=== PATIENT | female | born 1945 | race African-American/Black ===

== ENCOUNTER 2017-11-12 00:53 | Observation (INO) | payer MEDICARE ==
[2017-11-12 01:48] LABS: Mean Corpuscular HGB CONC 32.7 g/dL (32.0-36.0); Mean Corpuscular Hemoglobin 25.7 pg (27.0-31.0); Mean Corpuscular Volume 78.6 fL (78.0-98.0); Mean Platelet Volume 7.7 fL (7.4-10.4); Platelet Count 242 thou/uL (130-400); RBC Distribution Width 16.2 % (11.5-14.5); Red Blood Cell (RBC) Count 3.88 mill/uL (4.20-5.40); White Blood Cell (WBC) Count 4.6 thou/uL (4.8-10.8)
[2017-11-12 02:07] LABS: ALT (SGPT) 28 U/L (8-55); AST (SGOT) 29 U/L (5-34); Albumin 3.6 g/dL (3.4-4.8); Alkaline Phosphatase 125 U/L (40-150); Anion Gap 14 mmol/L (10-20); BUN (Urea Nitrogen) 17 mg/dL (9.8-20.1); Bilirubin, Total 0.3 mg/dL (0.2-1.2); CK (CPK) 47 U/L (29-168); Calc. Creatinine Clearance 0 mL/min (70-130); Carbon Dioxide 23 mmol/L (23-31); Chloride 102 mmol/L (98-107); Estimated GFR-MDRD 50; Globulin 3.2 g/dL (2.4-3.5); Glucose 351 mg/dL (80-115); Potassium 3.2 mmol/L (3.5-5.1); Protein, Total 6.8 g/dL (6.0-8.3); Sodium 136 mmol/L (136-145)
[2017-11-12 02:09] LABS: CKMB 1.4 ng/mL (0-6.6); Troponin I Less than 0.010 ng/mL (< 0.028)
[2017-11-12 02:15] LABS: Band 2 % (5-11); Eosinophils 2 % (0-10); Lymphocytes 31 % (21-51); MDiff Complete? YES; Monocytes 11 % (0-10); Neutrophil 54 % (42-75); PLT Morphology Comment Appears Adequate; RBC Morphology Normal
[2017-11-12] MEDS ORDERED: Potassium Chloride 20 MEQ TAB ONE (02:26)
[2017-11-12] MEDS ORDERED: Furosemide 40 MG TAB ONE (03:12)
[2017-11-12 06:08] VITALS: BMI 32.2
[2017-11-12] MEDS ORDERED: Dextrose 5% in Water 1,000 ML IV PRN (06:25)
[2017-11-12] MEDS ORDERED: HYDROcodone/Acetaminophen 5/325 mg Tablet PO PRN (06:25)
[2017-11-12] MEDS ORDERED: HYDROcodone/Acetaminophen 7.5/325 mg Tablet PO PRN (06:25)
[2017-11-12] MEDS ORDERED: Dextrose 50% Abboject 50 ML SYRINGE SLOW IVP PRN (06:25)
[2017-11-12] MEDS ORDERED: Ondansetron HCl/PF 4 MG/2 ML Vial IVP PRN (06:25)
[2017-11-12] MEDS ORDERED: Albuterol Sulfate 2.5 mg/3 ml Neb NEB PRN (06:47)
[2017-11-12] MEDS: HumaLOG 300 UNITS/3 ML VIAL SC PRN ×3 (07:13→21:18)
--- NOTE | 2017-11-12 07:13 | HP ---
DATE OF ADMISSION: 11/12/2017 CHIEF COMPLAINT: Shortness of breath and increased cough. HISTORY OF PRESENT ILLNESS: This is a 72-year-old female with known history of adolfo estive heart failure, hypertension, type 2 diabetes mellitus, has a history of COPD. The patient is noted to have a worsening cough and congestion with increased sputum production for the past few days , so she decided to come to the ER for further evaluation. When she presented to the ER, she had a m ildly elevated BNP and she was very hypoxic, but improving on the breathing treatments. The patient was about to go home, but she was noted to have increased heart rate of 130s. The patient had normal oxygenation, but because of the worsening tachycardia which was suspicious for paroxysmal atrial fib rillation, the patient was admitted for further evaluation. The patient is seen on the floor. She w as alert and oriented. She does agree that she is smoking a lot and she has known history of COPD. She goes to a well surveying engineer in [place]. Denies having any chest pain at this time. No dizziness, no nausea, no vomiting. She denies having any fevers. PAST MEDICAL HISTORY: 1. COPD. 2. Congestive heart failure. 3. Type 2 diabetes mellitus. 4. Hypertension. 5. Hyperlipidemia. 6. History of coronary artery disease. PAST SURGICAL HISTORY: 1. Hysterectomy. 2. Cyst removal from the neck. 3. Cardiac catheterization. ALLERGIES: CODEINE. SOCIAL HISTORY: The patient is an active smoker. She denies alcohol or any recreational drugs. FAMILY HISTORY: Relevant for colon cancer, type 2 diabetes mellitus in one of the family members. REVIEW OF SYSTEMS: All 12 systems are reviewed with the patient thoroughly and found to be negative at this time. Constitutional: Weight loss or gain, ability to conduct usual activities. Skin: Rash, itching. Eyes: Double vision, pain. ENT/Mouth: Nose bleeding, neck stiffness, pain, tenderness. Cardiovascular: Palpitations, dyspnea on exertion, orthopnea. Respiratory: Shortness of breath, wheezing, cough, hemoptysis, fever or night sweats. Gastrointestinal: Poor appetite, abdominal pain, heartburn, nausea, vomiting, constipation, or diarrhea. Genitourinary: Urgency, frequency, dysuria, nocturia. Musculoskeletal: Pain, swelling. Neurologic/Psychiatric: Anxiety, depression. Allergy/Immunologic: Skin rash, bleeding tendency. HOME MEDICATIONS: 1. Lasix 40 mg p.o. daily. 2. Metformin 1000 mg p.o. b.i.d. 3. Aspirin 81 mg p.o. daily. 4. Atorvastatin 40 mg p.o. daily. 5. Biotin. 6. Ferrous sulfate. 7. Metoprolol 100 mg p.o. b.i.d. 8. Montelukast 10 mg p.o. daily. 9. Nifedipine 30 mg p.o. daily. 10. Protonix 40 mg p.o. daily. 11. Potassium chloride 20 mEq p.o. daily. 12. Sertraline 100 mg p.o. daily. 13. Tramadol. PHYSICAL EXAMINATION: VITAL SIGNS: Blood pressures are 145/68, heart rate is 91, respiration rate is 22, saturation 93%. GENERAL: The patient is moderately built and moderate nourished, does not appear dyspneic acute dist ress at this time. Alert and oriented x3. MUSCULOSKELETAL: No calf tenderness. No pedal edema. No joint redness, no joint swelling. LUNGS: Bilateral air entry was reduced with wheezing noted bilaterally. No use of any accessory mus cles of respiration. No evidence of crackles were noted. ABDOMEN: Soft, nontender, no guarding, no rebound tenderness. Bowel sounds normal. MUSCULOSKELETAL: No calf tenderness. No pedal edema. No joint tenderness, no joint swelling. SKIN: No cyanosis, no erythema, no rash, no pallor. NEUROLOGIC: Cranial nerves II through XII intact. No focal deficits were noted at this time. PSYCHIATRIC: No signs of suicidal ideation. No signs of jacey was noted. LABORATORY DATA: WBC 4.6, hemoglobin is 10.1, hematocrit 30.5, platelets 242. Sodium 136, potassium 3.2, chloride 102, bicarbonate 23, BUN 17, creatinine 1.27, blood sugar is 433. ASSESSMENT: 1. Acute chronic obstructive pulmonary disease exacerbation. 2. Acute congestive heart failure, diastolic dysfunction. 3. Hypertension. 4. Hyperglycemia with type 2 diabetes mellitus. 5. Hyperlipidemia. 6. Hypothyroidism. PLAN: 1. Plan is to closely monitor this patient. We will continue the DuoNebs q.4h. and albuterol nebs q .2h. Patient has clear signs of congestion with a prolonged expiratory phase suggestive of bronchocon striction. We will start the patient on Solu-Medrol 40 mg q.6h. 2. The patient has history of type 2 diabetes mellitus, has poorly controlled blood sugars at 400. We will start the patient on Lantus 30 units subcu daily and with sliding scale insulin. 3. Hypertension is well controlled. We will restart the patient's home medications. 4. Hyperlipidemia. We will continue the patient's atorvastatin at this time. 5. The patient has sinus tachycardia. I will continue the patient's metoprolol tartrate, likely thi s is from nebulizer treatment she received in the ER. 6. Deep venous thrombosis prophylaxis, Lovenox. I spent 75 minutes with this patient.
[2017-11-12] MEDS: Lisinopril 2.5 MG TAB PO SCH (08:56)
[2017-11-12] MEDS: Montelukast Sodium 10 mg Tablet PO SCH (08:57)
[2017-11-12] MEDS: Potassium Chloride 20 MEQ TAB PO SCH (08:57)
[2017-11-12] MEDS: Aspirin 81 mg Enteric Coated Tablet PO SCH (08:57)
[2017-11-12] MEDS: NIFEdipine XL 30 MG TAB PO SCH (08:58)
[2017-11-12] MEDS: Ferrous Sulfate 325 MG TAB PO SCH (08:58)
[2017-11-12] MEDS: Metoprolol Tartrate 100 MG TAB PO SCH ×2 (08:58→20:21)
[2017-11-12] MEDS: Spironolactone 25 MG TAB PO SCH (08:59)
[2017-11-12] MEDS ORDERED: Non-Formulary Item 1 EACH (Biotin [Biotin] 1,000 MCG) PO SCH (09:00)
[2017-11-12] MEDS ORDERED: Enoxaparin Sodium 40 MG/0.4 ML SYRINGE SC SCH (09:00)
[2017-11-12] MEDS: traMADol HCl 50 MG TAB PO SCH ×2 (09:04→20:22)
[2017-11-12] MEDS: Insulin Glargine 30 UNITS in Pre-Filled Syringe 1 EACH SC SCH (09:54)
--- NOTE | 2017-11-12 10:07 | RAD ---
2 VIEWS CHEST: Date: 11/12/17 COMPARISON: 05/20/14. HISTORY: Dyspnea and shortness of breath. FINDINGS: There is pulmonary vascular congestion. There is atherosclerotic calcification of the aortic arch. No pneumothorax or pleural fluid is seen. There is no focal consolidation or alveolar edema. There is m ild perihilar and bibasilar interstitial prominence. IMPRESSION: Findings suggesting mild interstitial pulmonary edema. Recommend follow-up imaging following claritzamen t. POS: [facility]
[2017-11-12] MEDS: Furosemide 40 MG/4 ML VIAL SLOW IVP SCH (13:52)
--- NOTE | 2017-11-12 14:16 | PDOC.EVN ---
Event Note - Event Note Event Note: Pt seen and examined. chart reviewed feels much better and is on RA without any SOB Monitor strips show rate controlled A-flutter. No h/o same .Follows with Dr. Ackerman(cardiology) in [place] .H/O Severe CAD on Cath in 2013. Will consult EP.follow ECHO results. may need further cardiologoical work up if EF <35%. No evidence of ACS. cont meds as ordered by admitting MD. cont IV Solumedrol,duonebs,Lasix IV etc am labs will follow
[2017-11-12] MEDS ORDERED: Atorvastatin Calcium 40 MG TAB PO SCH (21:00)
[2017-11-12] MEDS ORDERED: Rivaroxaban 10 MG TAB PO SCH (21:00)
--- NOTE | 2017-11-13 02:10 | CON ---
DATE OF CONSULTATION: 11/12/2017 ELECTROPHYSIOLOGY CONSULTATION REPORT REFERRING PHYSICIAN: Dr. Gilliland. I am seeing Ms. Quevedo at our [facility] telemetry floor as an electrophysiology net developer consultant. Her problems are: 1. Newly found atrial flutter with rapid ventricular rates. 2. Acute respiratory failure with underlying COPD exacerbation and possible congestive heart failure exacerbation. 3. Risk factors including type 2 diabetes, hypertension, and hyperlipidemia. 4. Prior history of coronary artery disease with remote history of stenting in 2001, still on aspiri n and Plavix. ALLERGIES: CODEINE. MEDICATIONS: At home include hydrocodone, albuterol, aspirin, Lipitor, dextrose, Lovenox, ferrous alvarenga lfate, furosemide, glucagon, insulin, lisinopril, metoprolol tartrate 100 mg twice a day. SUBJECTIVE: Ms. Quevedo is here with progressive dyspnea. She noted fevers, chills, worsening cough with sputum production for at least last couple of days. She did notice increasing fatigue, was not aware of her rapid heartbeats. Rest of 12-point systems otherwise unremarkable. PAST MEDICAL HISTORY: As above. She has been followed by internet marketing coordinator in [place] after her stent, b ut no recent need for cardiac intervention was noted. She denies prior history of arrhythmias. PAST SURGICAL HISTORY: Significant for hysterectomy, cyst removal and stent placement in the past. SOCIAL HISTORY: The patient is an active smoker. Denies ETOH or drug abuse. FAMILY HISTORY: Significant for colon cancer, type 2 diabetes in one of the family members. OBJECTIVE: VITAL SIGNS: Blood pressure is 144/62 in a supine position, 127/60 on a sitting position, 120/58 sta nding up; heart rate 85; respirations 20; temperature 98.2 degrees Fahrenheit. GENERAL: Alert and oriented woman, in no apparent distress. NECK: Supple. Jugular veins not distended. CHEST: Coarse without crackles. CARDIOVASCULAR: Heart sounds are irregularly irregular. S1 and S2 is variable. No murmur or gallop . ABDOMEN: Benign. Bowel sounds positive. EXTREMITIES: Lower extremities without edema, clubbing or cyanosis. Pulses are adequate. NEUROLOGIC: The patient is nonfocal. MUSCULOSKELETAL: No joint swelling or deformities. SKIN: Without rash. DATABASE: EKGs reviewed. Initial EKG reveals an atrial flutter, possibly typically morphology , although atypical features also noted. A 2D echo from 11/12/2017 shows LVEF of 55% to 60%, mild di lated left atrium, mitral regurgitation, mild tricuspid regurgitation. LABORATORY DATA: White count 4.6, hemoglobin 10, platelet count is 242. Sodium 136, potassium 3.2, BUN 17, creatinine 1.27 BNP is 402. Troponin I is less than 0.01. ASSESSMENT AND PLAN: Ms. Quevedo is a 72-year-old woman with history of coronary artery stenting in t he distant past, currently on aspirin and Plavix. She is admitted with upper respiratory tract infec tion symptoms without profound toxic signs. On the other hand, she was found to be in atrial flutter , which was not known to her before. The rates are somewhat rapid initially, but overall well contro lled, hence she is chronically taking metoprolol high dose. We discussed treatment options for the atrial flutter. At this point, I would recommend adding an an ticoagulant. She could benefit from a cardioversion, possibly ALEXANDRA guided before returning home, but also this could be performed as an outpatient as well after stabilization from her pulmonary conditio n. I also discussed ablation options, which could be considered in the future if recurrences are see n after resolution of her initial episode associated with acute respiratory failure. We will follow with you. Thank you for the consult.
[2017-11-13 04:36] VITALS: TEMP 98.2
[2017-11-13 06:26] LABS: #Lymphocytes 0.6 thou/uL (1.20-3.40); #Monocytes 0.3 thou/uL (0.11-0.59); %Basophils 0.4 % (0.0-1.0); %Lymphocytes 12.7 % (21.0-51.0); %Monocytes 5.4 % (0.0-10.0); %Neutrophils 81.4 % (42.0-75.0); Hemoglobin 9.7 g/dL (12.0-16.0); Mean Corpuscular HGB CONC 31.6 g/dL (32.0-36.0); Mean Corpuscular Volume 79.1 fL (78.0-98.0); Mean Platelet Volume 8.2 fL (7.4-10.4); Platelet Count 248 thou/uL (130-400); RBC Distribution Width 16.1 % (11.5-14.5); Red Blood Cell (RBC) Count 3.86 mill/uL (4.20-5.40)
[2017-11-13] MEDS: Furosemide 40 MG/4 ML VIAL SLOW IVP SCH ×2 (06:27→12:01)
[2017-11-13] MEDS: HumaLOG 300 UNITS/3 ML VIAL SC PRN ×2 (06:27→12:01)
[2017-11-13 06:45] LABS: Anion Gap 13 mmol/L (10-20); BUN (Urea Nitrogen) 20 mg/dL (9.8-20.1); Calc. Creatinine Clearance 82 mL/min (70-130); Calcium 9.3 mg/dL (7.8-10.44); Carbon Dioxide 27 mmol/L (23-31); Chloride 102 mmol/L (98-107); Estimated GFR-MDRD 71; Glucose 289 mg/dL (80-115); Potassium 3.8 mmol/L (3.5-5.1); Sodium 138 mmol/L (136-145)
[2017-11-13] MEDS: Ferrous Sulfate 325 MG TAB PO SCH (10:03)
[2017-11-13] MEDS: Insulin Glargine 30 UNITS in Pre-Filled Syringe 1 EACH SC SCH (10:03)
[2017-11-13] MEDS: Aspirin 81 mg Enteric Coated Tablet PO SCH (10:03)
[2017-11-13] MEDS: Lisinopril 2.5 MG TAB PO SCH (10:04)
[2017-11-13] MEDS: Metoprolol Tartrate 100 MG TAB PO SCH (10:04)
[2017-11-13] MEDS: Potassium Chloride 20 MEQ TAB PO SCH (10:05)
[2017-11-13] MEDS: NIFEdipine XL 30 MG TAB PO SCH (10:05)
[2017-11-13] MEDS: Montelukast Sodium 10 mg Tablet PO SCH (10:05)
[2017-11-13] MEDS: traMADol HCl 50 MG TAB PO SCH (10:06)
[2017-11-13 10:14] VITALS: BP 148/71
[2017-11-13] MEDS: Spironolactone 25 MG TAB PO SCH (10:16)
[2017-11-13] MEDS ORDERED: Rivaroxaban 10 MG TAB PO SCH (18:00)
--- NOTE | 2017-11-14 00:14 | DIS ---
DATE OF ADMISSION: 11/12/2017 DATE OF DISCHARGE: 11/13/2017 CONDITION AT THE TIME OF DISCHARGE: Stable and improved. PRIMARY CARE PHYSICIAN: Dr. Velasquez in [place]. PRIMARY PATENT ATTORNEY: Dr. Ackerman in [place]. DISCHARGE DIAGNOSES: 1. New diagnosis of atrial flutter with rapid ventricular now rate, now controlled. 2. Acute on chronic diastolic congestive heart failure. 3. Acute chronic obstructive pulmonary disease exacerbation. 4. Acute hypoxic respiratory failure, resolved. 5. History of chronic obstructive pulmonary disease. 6. Diabetes type 2. 7. Hypertension. 8. Dyslipidemia. 9. Coronary artery disease. INHOUSE CONSULTATION: Electrophysiology, Dr. Macho Rivera. PROCEDURES DONE IN THE HOSPITAL: Transthoracic echocardiogram, which shows EF of 55%-60%, mildly dil ated left atrium and moderate mitral regurgitation. DISCHARGE MEDICATIONS: Remain the same as admission medication. Please see admission history and ph ysical for further details. New medications are as follows, Medrol Dosepak 1 pack use as directed, X arelto 20 mg daily for new diagnosis of atrial flutter, DuoNebs as needed every 4 hours for COPD. HISTORY OF PRESENTING ILLNESS: Ms. Quevedo is a pleasant 72-year-old female with known history of chr onic diastolic congestive heart failure, COPD, diabetes, hypertension, dyslipidemia, and coronary art jose luis disease who is still smoking, presented to the emergency room with complaints of shortness of ruthie ath and increased cough. Upon chest x-ray, she had no evidence of infection. She did have right pul monary edema and was admitted for COPD and CHF exacerbation. Please see admission history and physic al for further detail. Oxygen saturation was 93% on room air upon presentation. She was started on diuresis as well as IV Solu-Medrol, nebulizers and oxygen for the treatment initially. HOSPITAL COURSE: The patient was found to have new onset of atrial flutter after she presented to e floor. EP was consulted and she was continued on diuresis while she was here with excellent respon se. She underwent echocardiogram with the above-mentioned results with preserved ejection fraction. She has history of coronary artery disease with intervention in the past. She had a cardiac cathete rization done in 2013, which showed severe coronary artery disease. Dr. Rivera saw the patient and recommended starting on Xarelto for stroke prophylaxis and outpatient wo rkup with possible ALEXANDRA and cardioversion for her atrial flutter. By the time of discharge, the patient was back to her baseline and was not requiring any oxygen. Her examination showed clinical improvement and she was discharged. PHYSICAL EXAMINATION: She was seen and examined prior to discharge. PHYSICAL EXAMINATION: VITAL SIGNS: This morning, blood pressure 148/71, heart rate 80, respirations 20, saturating 94% on room air in no acute distress. GENERAL APPEARANCE: Awake, alert, oriented x3. CHEST: Clear to auscultation without any wheezing, rales or rhonchi. Rhythm is irregularly irregula r without any murmurs. Heart rate controlled. LABORATORY EXAMINATION: Hemoglobin 9.7, BNP 735. The patient is instructed to follow with her own medication nurse in [place] with Dr. Ackerman as soon as possible and start taking the Xarelto for now. Prescriptions were provided for all other new medica tions. I called her daughter, Ms. Briseno over the phone and discussed her mother's diagnosis and jamaal atment plan as well. They verbalized understanding. Follow up with primary care physician in 1-2 we eks and follow up with electrophysiology, Dr. Rivera in 2 weeks. She has been cleared for discharge by Dr. Rivera as well.
== END 2017-11-13 12:50 | disposition home or self-care (01) ==
LOC: ERS 00:53 → 2SW 05:48
PROVIDERS: ADMIT Family Medicine; ATTEND Family Medicine
DX: J44.1 Chronic obstructive pulmonary disease with (acute) exacerbation (principal); J96.01 Acute respiratory failure with hypoxia; I11.0 Hypertensive heart disease with heart failure; I50.33 Acute on chronic diastolic (congestive) heart failure; E11.9 Type 2 diabetes mellitus without complications; E78.5 Hyperlipidemia, unspecified; I25.10 Atherosclerotic heart disease of native coronary artery without angina pectoris; I48.92 Unspecified atrial flutter; F17.200 Nicotine dependence, unspecified, uncomplicated; Z79.899 Other long term (current) drug therapy; Z79.02 Long term (current) use of antithrombotics/antiplatelets; Z88.5 Allergy status to narcotic agent
CPT/HCPCS: 71046; 80048; 80053; 82550; 82553; 82962 ×2; 83880 ×2; 84484; 85025 ×2; 93005; 93306; 93798; 94640 ×2; 96372; 96374; 96376 ×2; 97139; 99285; G0378; 36415; 36416; 94760; A4216; J1650; J1940; J2920; J7620

== ENCOUNTER 2017-11-15 21:20 | Emergency (ER) | payer MEDICARE ==
--- NOTE | 2017-11-15 23:41 | ULT ---
VENOUS DOPPLER ULTRASOUND OF THE RIGHT LOWER EXTREMITY: 11/15/17 HISTORY: Right lower extremity pain and edema. TECHNIQUE: Durand scale ultrasound with color flow and spectral doppler imaging of the deep venous system of the r ight lower extremity is performed. FINDINGS: There is good flow, compression and augmentation noted in the common femoral, femoral, deep femoral, popliteal, posterior tibial, anterior tibial and greater saphenous veins. IMPRESSION: No evidence of DVT in the right lower extremity. POS: [facility]
--- NOTE | 2017-11-15 23:55 | RAD ---
PA AND LATERAL VIEWS OF THE CHEST: 11/15/17 HISTORY: Cough. FINDINGS: Comparison is made with exam of 11/12/17. The heart size is borderline. The aorta is tortuous and the lungs are well expanded without lobar con solidation, pneumothoraces, or pleural effusions. Mild prominence in the pulmonary vascularity is aga in noted. IMPRESSION: Mild interstitial pulmonary edema. POS: [facility]
[2017-11-16 00:11] LABS: #Lymphocytes 1.5 thou/uL (1.20-3.40); #Monocytes 0.8 thou/uL (0.11-0.59); %Basophils 0.5 % (0.0-1.0); %Eosinophils 0.5 % (0.0-10.0); %Lymphocytes 20.5 % (21.0-51.0); %Monocytes 10.6 % (0.0-10.0); %Neutrophils 67.8 % (42.0-75.0); Mean Corpuscular HGB CONC 32.2 g/dL (32.0-36.0); Mean Corpuscular Hemoglobin 25.2 pg (27.0-31.0); Mean Corpuscular Volume 78.3 fL (78.0-98.0); Mean Platelet Volume 7.9 fL (7.4-10.4); Platelet Count 278 thou/uL (130-400); RBC Distribution Width 16.3 % (11.5-14.5); Red Blood Cell (RBC) Count 3.94 mill/uL (4.20-5.40); White Blood Cell (WBC) Count 7.3 thou/uL (4.8-10.8)
[2017-11-16 00:32] LABS: ALT (SGPT) 25 U/L (8-55); AST (SGOT) 14 U/L (5-34); Alkaline Phosphatase 152 U/L (40-150); Anion Gap 18 mmol/L (10-20); BUN (Urea Nitrogen) 29 mg/dL (9.8-20.1); Bilirubin, Total 0.3 mg/dL (0.2-1.2); Calc. Creatinine Clearance 0 mL/min (70-130); Calcium 9.1 mg/dL (7.8-10.44); Carbon Dioxide 22 mmol/L (23-31); Chloride 102 mmol/L (98-107); Estimated GFR-MDRD 54; Globulin 3.2 g/dL (2.4-3.5); Glucose 313 mg/dL (80-115); Potassium 3.5 mmol/L (3.5-5.1); Protein, Total 7.2 g/dL (6.0-8.3); Sodium 138 mmol/L (136-145)
[2017-11-16] MEDS ORDERED: Labetalol HCl 100 MG/20 ML VIAL ONE (01:08)
[2017-11-16] MEDS ORDERED: Metoprolol Tartrate 50 MG TAB ONE (02:16)
[2017-11-16] MEDS ORDERED: NIFEdipine XL 30 MG TAB ONE (02:32)
== END 2017-11-16 02:46 | disposition home or self-care (01) ==
LOC: ERS 21:20
DX: R60.0 Localized edema (principal); E11.9 Type 2 diabetes mellitus without complications; E78.5 Hyperlipidemia, unspecified; I10 Essential (primary) hypertension; J45.909 Unspecified asthma, uncomplicated; F32.9 Major depressive disorder, single episode, unspecified; F17.210 Nicotine dependence, cigarettes, uncomplicated; Z79.82 Long term (current) use of aspirin; Z79.899 Other long term (current) drug therapy; Z79.84 Long term (current) use of oral hypoglycemic drugs
CPT/HCPCS: 71046; 80053; 83880; 85025; 93005; 96374

== ENCOUNTER 2018-10-15 16:18 | Observation (INO) | payer MEDICARE ==
--- NOTE | 2018-10-15 16:39 | RAD ---
EXAM: Chest PA and lateral: HISTORY: Cough. COMPARISON: 11/15/2017 FINDINGS: Heart: Upper normal heart size. There is a coronary artery stent. Aorta: Atherosclerosis of the aortic knob Pulmonary vessels: Slightly prominent. Costophrenic angles: Costophrenic angles are clear. Lungs: Diffuse patchy interstitial opacities which are presumed be chronic. Hyperinflation. Pneumothorax: No pneumothorax Osseous structures: No osseous abnormalities IMPRESSION: 1. Atherosclerosis. 2. Pulmonary vascular prominence. 3. Hyperinflation with chronic changes.
[2018-10-15 17:22] LABS: #Basophils 0.1 thou/uL (0.0-0.2); #Eosinphils 0.1 thou/uL (0.0-0.7); #Lymphocytes 1.3 thou/uL (1.20-3.40); #Monocytes 0.8 thou/uL (0.11-0.59); #Neutrophils 4.8 thou/uL (1.40-6.50); %Eosinophils 1.2 % (0.0-10.0); %Lymphocytes 18.3 % (21.0-51.0); %Monocytes 11.3 % (0.0-10.0); %Neutrophils 68.2 % (42.0-75.0); Mean Corpuscular HGB CONC 32.9 g/dL (32.0-36.0); Mean Corpuscular Volume 85.2 fL (78.0-98.0); Mean Platelet Volume 7.5 fL (7.4-10.4); Platelet Count 286 thou/uL (130-400); RBC Distribution Width 15.2 % (11.5-14.5); Red Blood Cell (RBC) Count 3.94 mill/uL (4.20-5.40)
[2018-10-15 17:47] LABS: ALT (SGPT) 9 U/L (8-55); AST (SGOT) 14 U/L (5-34); Albumin 3.8 g/dL (3.4-4.8); Alkaline Phosphatase 90 U/L (40-150); Anion Gap 13 mmol/L (10-20); BUN (Urea Nitrogen) 15 mg/dL (9.8-20.1); Bilirubin, Total 0.4 mg/dL (0.2-1.2); Calc. Creatinine Clearance 0 mL/min (70-130); Calcium 9.6 mg/dL (7.8-10.44); Carbon Dioxide 23 mmol/L (23-31); Chloride 108 mmol/L (98-107); Estimated GFR-MDRD 63; Globulin 3.2 g/dL (2.4-3.5); Glucose 96 mg/dL (83-110); Potassium 3.3 mmol/L (3.5-5.1); Sodium 141 mmol/L (136-145)
[2018-10-15] MEDS ORDERED: Potassium Chloride 20 MEQ TAB ONE ×2 (18:09→18:10)
[2018-10-15] MEDS ORDERED: Furosemide 40 MG/4 ML VIAL ONE (18:53)
[2018-10-15 20:57] LABS: Troponin I Less than 0.010 ng/mL (< 0.028)
[2018-10-15] MEDS ORDERED: Ondansetron PF 4 MG/2 ML Vial IVP PRN (21:13)
[2018-10-15] MEDS ORDERED: Acetaminophen 325 MG TAB PO PRN (21:13)
[2018-10-15] MEDS ORDERED: Ondansetron ODT 4 MG TAB SL PRN (21:13)
[2018-10-15 21:14] VITALS: BMI 32.1
[2018-10-15] MEDS: cefTRIAXone\\ROCEPHIN 1 GM in Sodium Chloride 0.9% 100 ML IVPB SCH (23:17)
[2018-10-15 23:38] LABS: Troponin I Less than 0.010 ng/mL (< 0.028)
--- NOTE | 2018-10-16 03:34 | HP ---
CHIEF COMPLAINT: Cough. HISTORY OF PRESENT ILLNESS: The patient is a 73-year-old female, who has had a history of prior admissions with COPD and congestive heart failure, although her echo a year ago showed preserved ejection fraction. The patient is followed primarily with PCP and solar energy advisor in [place]. A year ago, the patient was admitted here with atrial fibrillation with rapid ventricular response. She was supposed to have a followup with Dr. Rivera, but she does not recall whether she did that or not. She has remained on anticoagulation nonetheless. The patient presented to the emergency department today. She tells me that she has been coughing for about a week. It has been productive of some clear mucus. She has had some mild shortness of breath and dyspnea on exertion, but not too bad at rest. She has had some hoarseness of her voice. She denies fevers, chills, or chest pain, but she has had some nasal congestion and drainage, which she states is generally year-round. The patient also reports that she has had some swelling in her lower extremities. She indicated it is where she had blood clots and the Emergency Department documentation suggests that she was diagnosed with DVTs in May; however, that is not the case. The patient actually had arterial thrombosis with a mechanical thrombectomy and subsequent angioplasty. EMERGENCY ROOM COURSE: The patient was worked up with labs and chest x-ray showing vascular prominence, but no tamar pulmonary edema. She had a BNP of 291. She was given a dose of Lasix along with some potassium and she tells me that her edema in her lower extremities have already improved since that time. PAST MEDICAL HISTORY: Notable for coronary artery disease, atrial fibrillation with rapid ventricular response, diabetes mellitus, COPD, CHF with a preserved ejection fraction, hypertension, depression and the above mentioned bilateral lower extremity arterial occlusions. PAST SURGICAL HISTORY: Coronary stent, hysterectomy, lower extremity arterial thrombectomy and subsequent angioplasty. FAMILY HISTORY: Mother had colon cancer. Father had diabetes. She has sisters with diabetes. A brother with COPD. SOCIAL HISTORY: The patient smokes 6 cigarettes per day. She denies alcohol or drugs. She is single. Her daughter, Divine Suarez would be her surrogate decision maker and she is a DNAR. PHYSICAL EXAMINATION: VITAL SIGNS: Temperature 99.2, pulse 105, respirations 16, O2 saturation 95% on room air, BP 134/60. GENERAL APPEARANCE: Age-appropriate female, in no distress. She is awake, alert, oriented, pleasant, and cooperative. HEENT: MARCO, no OP lesions. NECK: Supple and symmetric. Borderline JVD. HEART: Regular rate and rhythm without murmurs, gallops, or rubs. LUNGS: Clear to auscultation bilaterally. No wheezes or rales. ABDOMEN: Soft, nontender, and nondistended. Positive bowel sounds. No masses. No organomegaly. EXTREMITIES: She has no cyanosis, clubbing, or edema and diminished pulses, although they are palpable bilaterally in the feet. NEUROLOGICAL: The patient is fully intact. She has no obvious deficits. Cranial nerves are normal and cognition is normal. PSYCHIATRIC: Normal affect and behavior. SKIN: Normal turgor. Warm and dry. LABORATORY DATA: White count 7.0, hemoglobin 11, platelets 286. Sodium 141, potassium 3.3, chloride 108. The remainder of chemistry is normal. Troponin less than 0.01 x 2. BNP is 291.8. IMAGIN. Chest x-ray again shows some atherosclerotic disease, some pulmonary vascular prominence and hyperinflation with chronic changes. 2. EKG showed sinus rhythm with incomplete right bundle branch block, left anterior fascicular blocks, old septal infarct and it appears to be generally unchanged from November of 2017. IMPRESSION AND PLAN: 1. Dyspnea. This appears to be likely related to some combination of bronchitis on top of chronic obstructive pulmonary disease along with some potential mild decompensation of diastolic dysfunction related heart failure. The patient will get a dose of Levophed. 2. Decompensated heart failure with a preserved ejection fraction more consistent with diastolic dysfunction. The patient has received a single dose of Lasix. She seems to be improved. We will not add additional now. We will anticipate resuming her back on her usual dose in the morning. We will get her up and around in the morning to see, if her symptoms have improved. If not, she may need another dose of IV. 3. Bronchitis. We will add dose of Rocephin tonight. She can likely be treated with some p.o. antibiotics at discharge. 4. Chronic obstructive pulmonary disease. We will ensure the patient has some nebulizer treatments available and oxygen as needed. 5. Hypokalemia. The patient has received doses of supplementation in the ER. We will recheck those in the morning. 6. Hypertension, continue with her usual home regimen. 7. History of depression. Continue with her sertraline. 8. Disposition. The patient will remain on telemetry and observation. Anticipate short stay and likely will be able to discharge tomorrow. Job ID: [id number]
[2018-10-16 05:53] LABS: Anion Gap 12 mmol/L (10-20); BUN (Urea Nitrogen) 14 mg/dL (9.8-20.1); Calc. Creatinine Clearance 75 mL/min (70-130); Calcium 8.9 mg/dL (7.8-10.44); Carbon Dioxide 27 mmol/L (23-31); Chloride 105 mmol/L (98-107); Estimated GFR-MDRD 65; Glucose 62 mg/dL (83-110); Potassium 3.5 mmol/L (3.5-5.1); Sodium 140 mmol/L (136-145)
[2018-10-16] MEDS: Cilostazol 100 MG TAB PO SCH ×2 (08:35→16:06)
[2018-10-16] MEDS: Furosemide 40 MG TAB PO SCH (08:35)
[2018-10-16] MEDS: NIFEdipine XL 30 MG TAB PO SCH (08:36)
[2018-10-16] MEDS: Ferrous Sulfate 325 MG TAB PO SCH (08:36)
[2018-10-16] MEDS: Apixaban 5 MG TAB PO SCH ×2 (08:36→20:09)
[2018-10-16] MEDS: Potassium Chloride 20 MEQ TAB PO SCH (08:36)
[2018-10-16] MEDS: Metoprolol Tartrate 100 MG TAB PO SCH ×2 (08:36→20:09)
[2018-10-16] MEDS: metFORMIN 500 MG TAB PO SCH ×2 (08:50→17:13)
[2018-10-16] MEDS: glipiZIDE 10 MG TAB PO SCH (08:51)
[2018-10-16] MEDS ORDERED: predniSONE 20 MG TAB PO SCH (13:15)
--- NOTE | 2018-10-16 16:00 | PRG ---
DATE OF SERVICE: 10/16/2018 SUBJECTIVE: Ms. Quevedo is a very pleasant 73-year-old female with past medical history significant for COPD, heart failure with preserved EF, paroxysmal atrial flutter, and ongoing tobacco abuse, who presented to the hospital with complaints of worsening cough and shortness of breath. The patient continues to complain of some shortness of breath. Her cough is slowly improving with breathing treatments. She denies any chest pain. She denies any nausea or vomiting. Denies any fever or chills. OBJECTIVE: VITAL SIGNS: Blood pressure 142/65, pulse is 69, O2 saturation is 95% on room air, respirations are 20, and temperature 98.4. GENERAL: The patient is a moderately obese, female, resting comfortably in bed, in no acute distress. HEENT: Head is atraumatic and normocephalic. Mucous membranes are moist. NECK: No obvious JVD. Trachea is midline. CV: S1 and S2. Regular rate/tachycardic, with occasional irregularity. LUNGS: Regular respiratory rate and pattern, overall decreased vesicular breath sounds with occasional rhonchi. No crackles. ABDOMEN: Soft. Positive bowel sounds. EXTREMITIES: No edema. Lower extremities are warm and well perfused. NEUROLOGIC: Cranial nerves 2 through 12 grossly intact. The patient is nonfocal. LABORATORY DATA: Sodium 140, potassium 3.5, chloride 105, BUN is 14, creatinine 1.01, and GFR 65. Troponin was negative x2. ASSESSMENT: 1. Shortness of breath and cough, secondary to combination of chronic obstructive pulmonary disease/congestive heart failure, improving. 2. Paroxysmal atrial flutter, CHADS-VASc equals 5, on Eliquis. 3. Chronic obstructive pulmonary disease with ongoing tobacco abuse. 4. Acute diastolic heart failure exacerbation, improving. 5. Mild chronic normocytic anemia, stable. 6. History of acute limb ischemia secondary to thrombosis, status post thrombectomy in May 2018, on Eliquis, stable. PLAN: At this time, we will continue pulmonary toilet and antibiotics. We will add steroids for her COPD exacerbation. I have counseled her extensively on tobacco cessation. If she continues to improve, expect discharge tomorrow morning. Job ID: [id number]
[2018-10-16 18:53] LABS: Hemoglobin 11.1 g/dL (12.0-16.0); Platelet Count 269 thou/uL (130-400)
[2018-10-16] MEDS ORDERED: Atorvastatin Calcium 40 MG TAB PO SCH (21:00)
[2018-10-16] MEDS: cefTRIAXone\\ROCEPHIN 1 GM in Sodium Chloride 0.9% 100 ML IVPB SCH (22:10)
[2018-10-16] MEDS ORDERED: HumaLOG 300 UNITS/3 ML VIAL SC PRN (23:08)
[2018-10-16] MEDS ORDERED: Dextrose 5% in Water 1,000 ML IV PRN (23:14)
[2018-10-16] MEDS ORDERED: Dextrose 50% Abboject 50 ML SYRINGE IVP PRN (23:14)
[2018-10-17] MEDS ORDERED: predniSONE 20 MG TAB PO SCH (08:00)
[2018-10-17] MEDS: Furosemide 40 MG TAB PO SCH (08:22)
[2018-10-17] MEDS: metFORMIN 500 MG TAB PO SCH (08:22)
[2018-10-17] MEDS: Cilostazol 100 MG TAB PO SCH (08:22)
[2018-10-17] MEDS: Ferrous Sulfate 325 MG TAB PO SCH (08:23)
[2018-10-17] MEDS: Apixaban 5 MG TAB PO SCH (08:23)
[2018-10-17] MEDS: Metoprolol Tartrate 100 MG TAB PO SCH (08:23)
[2018-10-17] MEDS: Potassium Chloride 20 MEQ TAB PO SCH (08:23)
[2018-10-17] MEDS: glipiZIDE 10 MG TAB PO SCH (08:23)
[2018-10-17] MEDS: NIFEdipine XL 30 MG TAB PO SCH (08:23)
[2018-10-17 08:28] VITALS: BP 170/105
[2018-10-17 08:36] VITALS: TEMP 98
--- NOTE | 2018-10-17 19:03 | DIS ---
DATE OF ADMISSION: 10/15/2018 DATE OF DISCHARGE: 10/17/2018 CHIEF COMPLAINT: On admission, shortness of breath and cough. DISCHARGE DIAGNOSES: 1. Shortness of breath and cough, secondary to combination of chronic obstructive pulmonary disease and diastolic heart failure exacerbation, resolved. 2. Paroxysmal atrial flutter, CHADS-VASc equals 5, on Eliquis. 3. Chronic obstructive pulmonary disease with ongoing tobacco abuse. 4. Acute on chronic diastolic heart failure exacerbation, resolved. 5. Mild chronic normocytic anemia, stable. 6. History of acute limb ischemia secondary to thrombosis, status post thrombectomy, May 2018, on Eliquis, stable. BRIEF HOSPITAL COURSE: The patient is a very pleasant 73-year-old female with past medical history significant for COPD, heart failure with preserved EF, paroxysmal atrial flutter, and ongoing tobacco abuse, who presented to the hospital with complaints of worsening shortness of breath and productive cough. Her cough was productive of clear mucus. The patient was admitted with shortness of breath secondary to acute on chronic diastolic heart failure exacerbation as well as COPD exacerbation. She was treated with pulmonary toilet to include DuoNeb, steroids, as well as IV Rocephin. The patient was also given one dose of IV Lasix. The patient did diurese well. She responded well to breathing treatments and steroids. Her presenting symptoms have resolved and she is back to baseline this morning. Lungs are clear. She has ambulated the halls without issue. No chest pain or shortness of breath. The patient has no complaints at this time and is back to her baseline. DISCHARGE DISPOSITION: Home. DISCHARGE CONDITION: Stable. DISCHARGE INSTRUCTIONS: The patient has been counseled extensively on tobacco cessation. New medications will be Omnicef 300 mg capsule, one capsule p.o. q.12 hours for the next 5 days. She will also be discharged on a Medrol Dosepak. She will continue her other home medications, which include Eliquis along with her diabetic medications. She will follow up with her PCP in the next 7 to 10 days. The patient has also been counseled extensively on daily weights, fluid and sodium restriction. The patient will be discharged to home in good condition today. Job ID: [id number]
--- NOTE | 2018-10-20 02:03 | EKG ---
Test Reason : Blood Pressure : / mmHG Vent. Rate : 076 BPM Atrial Rate : 076 BPM P-R Int : 178 ms QRS Dur : 100 ms QT Int : 436 ms P-R-T Axes : 053 -56 058 degrees QTc Int : 490 ms Normal sinus rhythm Incomplete right bundle branch block Left anterior fascicular block Septal infarct , age undetermined Cannot rule out Inferior infarct , age undetermined Biphasic T wave V2 Abnormal ECG Confirmed by SANDY ALEJANDRE DO ([id number]), non linear editor ANDRES BILLINGSLEY ([id number] on 10/20/2018 2:03:06 AM Referred By: Confirmed By:SANDY ALEJANDRE DO
== END 2018-10-17 09:46 | disposition home or self-care (01) ==
LOC: ERS 16:18 → 2SW 21:02
PROVIDERS: ADMIT Internal Medicine; ATTEND Internal Medicine
DX: J44.1 Chronic obstructive pulmonary disease with (acute) exacerbation (principal); I11.0 Hypertensive heart disease with heart failure; I50.33 Acute on chronic diastolic (congestive) heart failure; I48.92 Unspecified atrial flutter; D64.9 Anemia, unspecified; E87.6 Hypokalemia; I25.10 Atherosclerotic heart disease of native coronary artery without angina pectoris; E11.9 Type 2 diabetes mellitus without complications; I45.2 Bifascicular block; F32.9 Major depressive disorder, single episode, unspecified; F17.210 Nicotine dependence, cigarettes, uncomplicated; E78.5 Hyperlipidemia, unspecified; Z66 Do not resuscitate; Z95.5 Presence of coronary angioplasty implant and graft; Z86.718 Personal history of other venous thrombosis and embolism; Z88.5 Allergy status to narcotic agent; Z79.01 Long term (current) use of anticoagulants; Z79.84 Long term (current) use of oral hypoglycemic drugs; Z79.899 Other long term (current) drug therapy
CPT/HCPCS: 71046; 80048; 80053; 82565; 82962 ×2; 83880; 84484 ×2; 85014; 85018; 85025; 85049; 93005 ×2; 94640 ×2; 94760; 96365; 96366; 96375; 99285; G0378 ×2; 36415; 36416; 93010; 96374; J0696; J1940; J3490; J7512; J7620

== ENCOUNTER 2019-07-01 00:19 | Observation (INO) | payer MEDICARE ==
[2019-07-01 00:42] LABS: #Basophils 0.1 thou/uL (0.0-0.2); #Eosinphils 0.1 thou/uL (0.0-0.7); #Lymphocytes 1.5 thou/uL (1.20-3.40); #Monocytes 1.1 thou/uL (0.11-0.59); #Neutrophils 8.7 thou/uL (1.40-6.50); %Basophils 0.7 % (0.0-1.0); %Eosinophils 0.6 % (0.0-10.0); %Lymphocytes 12.7 % (21.0-51.0); %Monocytes 9.6 % (0.0-10.0); %Neutrophils 76.4 % (42.0-75.0); Hemoglobin 11.5 g/dL (12.0-16.0); Mean Corpuscular HGB CONC 32.4 g/dL (32.0-36.0); Mean Corpuscular Hemoglobin 26.2 pg (27.0-31.0); Mean Platelet Volume 8.2 fL (7.4-10.4); Platelet Count 268 thou/uL (130-400); RBC Distribution Width 16.3 % (11.5-14.5); Red Blood Cell (RBC) Count 4.37 mill/uL (4.20-5.40); White Blood Cell (WBC) Count 11.4 thou/uL (4.8-10.8)
[2019-07-01 01:04] LABS: ALT (SGPT) 18 U/L (8-55); AST (SGOT) 17 U/L (5-34); Albumin 4.2 g/dL (3.4-4.8); Alkaline Phosphatase 118 U/L (40-110); Anion Gap 16 mmol/L (10-20); BUN (Urea Nitrogen) 18 mg/dL (9.8-20.1); Bilirubin, Total 0.4 mg/dL (0.2-1.2); Calc. Creatinine Clearance 0 mL/min (70-130); Calcium 9.4 mg/dL (7.8-10.44); Carbon Dioxide 22 mmol/L (23-31); Chloride 104 mmol/L (98-107); Estimated GFR-MDRD 52; Globulin 3.5 g/dL (2.4-3.5); Glucose 208 mg/dL (83-110); Potassium 3.3 mmol/L (3.5-5.1); Protein, Total 7.7 g/dL (6.0-8.3); Sodium 139 mmol/L (136-145)
[2019-07-01] MEDS ORDERED: methylPREDNISolone Sod Succ/PF 125 MG/2 ML VIAL ONE (02:41)
[2019-07-01] MEDS ORDERED: Furosemide 40 MG/4 ML VIAL ONE (02:41)
[2019-07-01 06:39] VITALS: BMI 35.9
--- NOTE | 2019-07-01 07:23 | RAD ---
Exam: Chest one view HISTORY:Dyspnea. COPD. Chest pain. Comparison: 09/12/2014, 10/15/2018 FINDINGS: Cardiac silhouette:Upper normal cardiac silhouette. Aorta: Atherosclerosis of the aorta Pulmonary vessels: Prominent Costophrenic angles: Clear LUNGS: Stable fibrotic changes with hyperinflation. Pneumothorax: None Osseous abnormalities: None IMPRESSION: 1. Stable pulmonary fibrosis. Hyperinflation. COPD. 2. Atherosclerosis.
[2019-07-01] MEDS ORDERED: Ondansetron PF 4 MG/2 ML Vial IVP PRN (11:15)
[2019-07-01] MEDS ORDERED: Acetaminophen 325 MG TAB PO PRN (11:15)
[2019-07-01] MEDS ORDERED: Guaifenesin DM 100-10/5 ML UDCUP PO PRN (11:15)
[2019-07-01] MEDS ORDERED: Bisacodyl 10 MG SUPP PR PRN (11:15)
[2019-07-01] MEDS ORDERED: Senokot S 8.6-50 MG TAB PO PRN (11:15)
--- NOTE | 2019-07-01 13:25 | HP ---
REASON FOR ADMISSION: COPD exacerbation, mild CHF exacerbation with likely diastolic dysfunction. HISTORY OF PRESENTING ILLNESS: The patient gives history of developing shortness of breath from yesterday morning. This progressively got worse. She has had lower extremity edema more in the lower leg and foot area, which has been progressively increasing as well. She has mostly dry cough. She developed a fever of 99 degrees last night. She normally ambulates with a walker. She lives in [place], but is visiting her sister and brother here in town. The patient finally made it to emergency room here. She has taken a flu shot for last year and pneumococcal shot in April of this year. PAST MEDICAL AND SURGICAL HISTORY: History of coronary artery disease with one stent placed in 2001, multiple stents to right lower extremity. She has had a femoral-popliteal as well. Last stent was placed on 04 of June in the right lower extremity. History of right lower extremity DVT, pulmonary embolus. Last episode of DVT was in 2018, hypertension, dyslipidemia, diabetes mellitus type 2, obesity, depression, paroxysmal atrial fibrillation, hysterectomy, COPD, history of CHF with diastolic dysfunction per the patient. CURRENT MEDICATIONS: The patient is on; 1. Symbicort 80/4.5 mcg two puffs twice daily. 2. Metoprolol tartrate 100 mg twice daily. 3. Albuterol inhaler q.6 hourly p.r.n. 4. Amiodarone 200 mg p.o. daily. 5. Sertraline 100 mg p.o. daily. 6. Procardia XL 30 mg daily. 7. Folic acid 1 mg daily. 8. Cilostazol 100 mg twice daily. 9. Eliquis 5 mg twice daily. 10. Atorvastatin 40 mg p.o. at bedtime. 11. Glipizide 10 mg daily. 12. Potassium chloride 20 mEq p.o. daily. 13. Metformin 1000 mg twice daily. 14. Lasix 40 mg p.o. twice daily. ALLERGIES: ALLERGIC TO CODEINE. PERSONAL HISTORY: Smokes eight cigarettes a day and has been doing so for the last 50 years or so. Does not abuse alcohol or drugs. Lives with her daughter in [place]. FAMILY HISTORY: Mother at the age of 68, she had history of colon cancer. Father of diabetes and its complications in his 70s. CODE STATUS: Full. Power of disability attorney is her daughter, Ms. Divine Suarez. REVIEW OF SYSTEMS: CONSTITUTIONAL: Negative for weight loss or gain, ability to conduct usual activities. SKIN: Negative for rash, itching. EYES: Negative for double vision, pain. ENT/MOUTH: Negative for nose bleeding, neck stiffness, pain, tenderness. CARDIOVASCULAR: Negative for palpitations, dyspnea on exertion, orthopnea. RESPIRATORY: Negative for shortness of breath, wheezing, cough, hemoptysis, fever or night sweats. GASTROINTESTINAL: Negative for poor appetite, abdominal pain, heartburn, nausea, vomiting, constipation, or diarrhea. GENITOURINARY: Negative for urgency, frequency, dysuria, nocturia. MUSCULOSKELETAL: Negative for pain, swelling. NEUROLOGIC/PSYCHIATRIC: Negative for anxiety, depression. ALLERGY/IMMUNOLOGIC: Negative for skin rash, bleeding tendency. PHYSICAL EXAMINATION: GENERAL: The patient is a 73-year-old female, who is currently not in any acute distress. VITAL SIGNS: Blood pressure 180/86, pulse 90 per minute, respiratory rate is 24 per minute, temperature 99.9 degrees Fahrenheit, saturating 87% on room air and 94% on 2 L nasal cannula. NECK: Supple. No elevated JVD. HEENT: Eyes; extraocular muscles intact. Pupils reacting to light. Oral cavity, mucous membranes are moist. No exudates or congestion. CARDIOVASCULAR SYSTEM: S1 and S2 heard. Regular rhythm. RESPIRATORY SYSTEM: Air entry 1+ bilateral. Scattered rhonchi plus mild wheezes plus bilateral. ABDOMEN: Soft. Bowel sounds heard. No tenderness, rigidity, or guarding. EXTREMITIES: Mild pedal edema. No calf tenderness. VASCULAR SYSTEM: Peripheral pulses 1+ bilateral. No ischemic ulcerations or gangrene. CENTRAL NERVOUS SYSTEM: No gross focal deficits noted. The patient is alert, awake, and oriented well. PSYCHIATRIC: The patient's mood is euthymic. No hallucinations or delusions. LABORATORY DATA: Chest x-ray done shows changes of pulmonary fibrosis with hyperinflation. There are changes of COPD. BUN 18, creatinine 1.24, serum glucose 208, serum bicarb 22. BNP is 654. Troponin I x1 is negative. Albumin 4.2. Hemoglobin and hematocrit of 11 and 35, platelet count 268, white count of 11.4, MCV is 81 with 76% neutrophils. EKG done shows normal sinus rhythm at 92 beats per minute. There is incomplete RBBB seen. The Q-wave seen in leads II, III, aVF, and V2, V3. QRS duration is 100 millisecond, corrected QT is 497 milliseconds. CLINICAL IMPRESSION AND PLAN: The patient will be under observation on medical floor for chronic obstructive pulmonary disease exacerbation and mild congestive heart failure exacerbation likely diastolic dysfunction. She will be on DuoNeb q.6 hourly, Solu-Medrol 40 mg IV q.6 hourly, Ceftin 250 mg twice daily for the COPD exacerbation. We will switch her oral Lasix to IV Lasix 40 mg IV at 6 a.m. and 2 p.m. We will continue amiodarone, Lipitor, Symbicort inhalers, cilostazol, folic acid, glipizide, metformin, Procardia XL, metoprolol tartrate, and sertraline as before. Echo with 2D Doppler for LV function will be obtained. We will closely monitor for any hemodynamic compromise. Job ID: [id number]
[2019-07-01] MEDS: Furosemide 40 MG/4 ML VIAL SLOW IVP SCH (13:42)
[2019-07-01] MEDS: Nicotine 14 MG PATCH TD SCH (13:45)
[2019-07-01] MEDS: Cilostazol 100 MG TAB PO SCH (17:30)
[2019-07-01] MEDS: metFORMIN 500 MG TAB PO SCH (17:31)
[2019-07-01] MEDS: methylPREDNISolone Sod Succ 40 MG VIAL IVP SCH (17:32)
[2019-07-01] MEDS: Mometasone 100 MCG/Formoterol 5 MCG 120 PUFF INHALER INH SCH (18:30)
[2019-07-01] MEDS: Famotidine 20 MG TAB PO SCH (20:52)
[2019-07-01] MEDS: Cefuroxime Axetil 250 MG TAB PO SCH (20:53)
[2019-07-01] MEDS: Metoprolol Tartrate 100 MG TAB PO SCH (20:53)
[2019-07-01] MEDS ORDERED: Atorvastatin Calcium 40 MG TAB PO SCH (21:00)
[2019-07-02] MEDS: methylPREDNISolone Sod Succ 40 MG VIAL IVP SCH ×2 (00:06→06:23)
[2019-07-02 05:44] LABS: #Lymphocytes 0.5 thou/uL (1.20-3.40); #Monocytes 0.4 thou/uL (0.11-0.59); #Neutrophils 7.7 thou/uL (1.40-6.50); %Basophils 0.1 % (0.0-1.0); %Eosinophils 0.1 % (0.0-10.0); %Lymphocytes 6.1 % (21.0-51.0); %Monocytes 4.4 % (0.0-10.0); %Neutrophils 89.3 % (42.0-75.0); Hemoglobin 9.9 g/dL (12.0-16.0); Mean Corpuscular HGB CONC 32.4 g/dL (32.0-36.0); Mean Corpuscular Hemoglobin 26.1 pg (27.0-31.0); Mean Corpuscular Volume 80.5 fL (78.0-98.0); Mean Platelet Volume 8.9 fL (7.4-10.4); Platelet Count 203 thou/uL (130-400); RBC Distribution Width 16.2 % (11.5-14.5); Red Blood Cell (RBC) Count 3.78 mill/uL (4.20-5.40); White Blood Cell (WBC) Count 8.6 thou/uL (4.8-10.8)
[2019-07-02 06:03] LABS: Anion Gap 18 mmol/L (10-20); BUN (Urea Nitrogen) 32 mg/dL (9.8-20.1); Calc. Creatinine Clearance 50 mL/min (70-130); Calcium 8.9 mg/dL (7.8-10.44); Carbon Dioxide 20 mmol/L (23-31); Chloride 98 mmol/L (98-107); Estimated GFR-MDRD 40; Potassium 3.9 mmol/L (3.5-5.1); Sodium 132 mmol/L (136-145)
[2019-07-02 06:10] LABS: Glucose 576 mg/dL (83-110)
[2019-07-02] MEDS: Furosemide 40 MG/4 ML VIAL SLOW IVP SCH ×2 (06:22→14:20)
[2019-07-02] MEDS ORDERED: HumaLOG 300 UNITS/3 ML VIAL SC SCH (07:00)
[2019-07-02] MEDS: Cilostazol 100 MG TAB PO SCH ×2 (07:21→17:02)
[2019-07-02] MEDS ORDERED: glipiZIDE 10 MG TAB PO SCH (07:30)
[2019-07-02] MEDS: Mometasone 100 MCG/Formoterol 5 MCG 120 PUFF INHALER INH SCH (07:44)
[2019-07-02] MEDS ORDERED: Potassium Chloride 20 MEQ TAB PO SCH (08:00)
[2019-07-02] MEDS ORDERED: HumaLOG 300 UNITS/3 ML VIAL SC PRN ×2 (08:24)
[2019-07-02] MEDS ORDERED: Dextrose 50% Abboject 50 ML SYRINGE SLOW IVP PRN (08:24)
[2019-07-02] MEDS ORDERED: Insulin Glargine 25 UNITS in Pre-Filled Syringe 1 EACH SC SCH (08:24)
[2019-07-02] MEDS ORDERED: Dextrose 5% in Water 1,000 ML IV PRN (08:24)
[2019-07-02] MEDS ORDERED: predniSONE 20 MG TAB PO SCH (08:30)
[2019-07-02] MEDS ORDERED: Folic Acid 1 MG TAB PO SCH (09:00)
[2019-07-02] MEDS ORDERED: Amiodarone 200 MG TAB PO SCH (09:00)
[2019-07-02] MEDS ORDERED: NIFEdipine XL 30 MG TAB PO SCH (09:00)
[2019-07-02] MEDS: metFORMIN 500 MG TAB PO SCH ×2 (09:43→17:01)
[2019-07-02] MEDS: Metoprolol Tartrate 100 MG TAB PO SCH (09:43)
[2019-07-02] MEDS: Cefuroxime Axetil 250 MG TAB PO SCH (09:44)
[2019-07-02] MEDS: Famotidine 20 MG TAB PO SCH (09:44)
[2019-07-02] MEDS: Nicotine 14 MG PATCH TD SCH (14:21)
[2019-07-02 16:05] VITALS: BP 121/67; TEMP 98.2
--- NOTE | 2019-07-02 18:47 | DIS ---
DATE OF ADMISSION: 07/01/2019 DATE OF DISCHARGE: 07/02/2019 DISCHARGE DISPOSITION: To home. PRIMARY DISCHARGE DIAGNOSES: Acute chronic obstructive pulmonary disease exacerbation; mild congestive heart failure exacerbation with diastolic dysfunction, resolved. SECONDARY DISCHARGE DIAGNOSES: History of coronary artery disease with prior single stent, history of right lower extremity peripheral vascular disease with prior femoral-popliteal and stents, obesity, history of deep vein thrombosis and pulmonary embolus, diabetes mellitus type 2, history of paroxysmal atrial fibrillation. PROCEDURES DONE DURING HOSPITALIZATION: The patient has had chest x-ray done, which showed no acute infiltrate. There are findings of possible pulmonary fibrosis with hyperinflation suggestive of COPD. Echo with 2D Doppler showed EF of 60% to 65% with diastolic dysfunction, moderately enlarged right atrium, moderate pulmonic regurgitation. H and H 10 and 30, platelet count 203, MCV is 80, with 89% neutrophils. BUN 32, creatinine 1.5. BNP 654. TSH 0.36. DISCHARGE MEDICATIONS: 1. Amiodarone 200 mg p.o. daily. 2. Atorvastatin 40 mg p.o. at bedtime. 3. Symbicort 80/4.5 mcg two puffs twice daily. 4. Cilostazol 100 mg twice daily. 5. Folic acid 1 mg p.o. daily. 6. Lasix 40 mg twice daily. 7. Glipizide 10 mg daily. 8. Metformin 1000 mg twice daily. 9. Lopressor 100 mg twice daily. 10. K-Dur 20 mEq p.o. daily. 11. Sertraline 100 mg p.o. daily. 12. DuoNeb q.6 hourly p.r.n. 13. Procardia XL 30 mg p.o. daily. ALLERGIES: ALLERGIC TO CODEINE. DISCHARGE PLAN: The patient to follow up with her primary care physician in [place] in 1 week. BRIEF COURSE DURING HOSPITALIZATION: The patient initially got admitted with complaints of shortness of breath and wheezing. She was also found to be in mild CHF exacerbation with diastolic dysfunction. The patient has had gentle diuresis done. She was also placed on brief steroids along with nebulizations. The patient has responded well to above measures. Her diabetes as expected is a bit uncontrolled due to short course of steroids which has been discontinued at the time of discharge. She has diuresed well briefly during her stay here. She needs to continue all her home medications as prescribed. She was also given a prescription for nebulizer in view of ongoing tobacco abuse and history of COPD with current exacerbation. Please note, I have seen and examined the patient on the day of discharge. She was counseled with regard to tobacco abuse cessation. Job ID: [id number]
[2019-07-03] MEDS ORDERED: Famotidine 20 MG TAB PO SCH (09:00)
--- NOTE | 2019-07-05 13:14 | EKG ---
Test Reason : Blood Pressure : / mmHG Vent. Rate : 092 BPM Atrial Rate : 092 BPM P-R Int : 196 ms QRS Dur : 100 ms QT Int : 402 ms P-R-T Axes : 069 253 044 degrees QTc Int : 497 ms Normal sinus rhythm Right superior axis deviation Incomplete right bundle branch block Inferior infarct , age undetermined Possible Anterior infarct , age undetermined Abnormal ECG Confirmed by BENNY WRIGHT ([id number]), general expeditor PALMIRA ALMEIDA ([id number]) on 07/05/2019 1:14:35 PM Referred By: Confirmed By:BENNY WRIGHT
== END 2019-07-02 17:53 | disposition home or self-care (01) ==
LOC: ERS 00:19 → SURG B 02:43
PROVIDERS: ADMIT Internal Medicine; ATTEND Internal Medicine
DX: J44.1 Chronic obstructive pulmonary disease with (acute) exacerbation (principal); I11.0 Hypertensive heart disease with heart failure; I50.31 Acute diastolic (congestive) heart failure; I25.10 Atherosclerotic heart disease of native coronary artery without angina pectoris; E11.9 Type 2 diabetes mellitus without complications; E78.5 Hyperlipidemia, unspecified; F32.9 Major depressive disorder, single episode, unspecified; I48.0 Paroxysmal atrial fibrillation; E66.9 Obesity, unspecified; F17.210 Nicotine dependence, cigarettes, uncomplicated; Z68.35 Body mass index [BMI] 35.0-35.9, adult; Z79.84 Long term (current) use of oral hypoglycemic drugs; Z79.899 Other long term (current) drug therapy; Z86.718 Personal history of other venous thrombosis and embolism; Z86.711 Personal history of pulmonary embolism; Z88.5 Allergy status to narcotic agent; Z95.5 Presence of coronary angioplasty implant and graft
CPT/HCPCS: 36415; 36416; 71045; 80048; 80053; 83880; 84443; 84484; 85025; 87070; 87205; 93005; 93306; 93798; 94640; 94760; 96374; 96375; 96376; 99406; G0378; J1815; J1940; J2920; J2930; J7512; J7620